=== PATIENT | female | born 1980 | race Caucasian/White ===

== ENCOUNTER 2019-11-26 08:04 | Day surgery (SDC) | payer BC ==
[~2019-11-26] VITALS: Ht 157.5 cm; Wt 60.5 kg
[~2019-11-26 08:04] MED LIST: ALBU8HFA2 INH; Citalopram HBr40 MG PO; FLUT1DIS2 INH
== END 2019-11-26 09:57 | disposition home or self-care (01) ==
LOC: ORSCSDS 08:04
PROVIDERS: Student in an Organized Health Care Education/Training Program
PROC: 0DBM8ZX Excision of Descending Colon, Via Natural or Artificial Opening Endoscopic, Diagnostic (ICD-10-PCS; principal; 2019-11-26 09:00)
DX: K57.30 Diverticulosis of large intestine without perforation or abscess without bleeding (principal); D12.4 Benign neoplasm of descending colon; F41.8 Other specified anxiety disorders; J45.909 Unspecified asthma, uncomplicated; F17.210 Nicotine dependence, cigarettes, uncomplicated; Z79.899 Other long term (current) drug therapy
CPT/HCPCS: 88305; J2704; J7120